=== PATIENT | female | born 1985 | race Two or more races ===

== ENCOUNTER 2021-05-07 03:05 | Emergency (ER) | payer OTHER ==
[~2021-05-07] VITALS: Ht 162.6 cm; Wt 84.1 kg
[2021-05-07] MEDS ORDERED: KETOROLAC TROMETHAMINE 30 MG/ML VIAL IM ONE (04:30)
[2021-05-07] MEDS ORDERED: ONDANSETRON HCL 4 MG TABLET PO ONE (04:30)
[2021-05-07 06:19] VITALS: BP 135/69
== END 2021-05-07 06:29 | disposition home or self-care (01) ==
LOC: EMS 03:06
DX: S92.002A Unspecified fracture of left calcaneus, initial encounter for closed fracture (principal); S32.009A Unspecified fracture of unspecified lumbar vertebra, initial encounter for closed fracture; W17.89XA Other fall from one level to another, initial encounter; Y93.89 Activity, other specified; Y92.89 Other specified places as the place of occurrence of the external cause; Y99.8 Other external cause status
CPT/HCPCS: 29515; 72100; 73610; 73650; 96372; 99284; J1885; Q0162